=== PATIENT | male | born 1945 | race Caucasian/White ===

== ENCOUNTER → 2020-02-07 16:30 | Outpatient (BNVA) | payer MEDICARE, SELFPAY | PROVIDERS: PCP Nurse Practitioner Family; Visit Provider Family Medicine | DX: Z01.818 Encounter for other preprocedural examination (principal); G56.01 Carpal tunnel syndrome, right upper limb; F17.211 Nicotine dependence, cigarettes, in remission; Z71.89 Other specified counseling | CPT/HCPCS: 80048; 84153; 85025 ==

== ENCOUNTER → 2020-04-04 12:42 | Outpatient (BNVA) | payer MEDICARE, SELFPAY | PROVIDERS: PCP Nurse Practitioner Family; Visit Provider Nurse Practitioner Family | DX: R33.9 Retention of urine, unspecified (principal); N30.90 Cystitis, unspecified without hematuria | CPT/HCPCS: 81003; 87086 ==

== ENCOUNTER → 2020-05-25 13:12 | Outpatient (BNVA) | payer MEDICARE, SELFPAY | PROVIDERS: PCP Nurse Practitioner Family; Visit Provider Nurse Practitioner Family | DX: R33.9 Retention of urine, unspecified (principal); N30.90 Cystitis, unspecified without hematuria; N40.1 Benign prostatic hyperplasia with lower urinary tract symptoms | CPT/HCPCS: 81003 ==

== ENCOUNTER → 2021-01-10 14:55 | Outpatient (BNVA) | payer MEDICARE, SELFPAY | PROVIDERS: PCP Nurse Practitioner Family; Visit Provider Urology | DX: N40.1 Benign prostatic hyperplasia with lower urinary tract symptoms (principal) | CPT/HCPCS: 81003; 84153 ==

== ENCOUNTER → 2021-04-25 17:45 | Outpatient (BNVA) | payer MEDICARE, SELFPAY | PROVIDERS: PCP Nurse Practitioner Family; Visit Provider Nurse Practitioner Family | DX: Z00.00 Encounter for general adult medical examination without abnormal findings (principal); R07.9 Chest pain, unspecified; G47.33 Obstructive sleep apnea (adult) (pediatric); N40.1 Benign prostatic hyperplasia with lower urinary tract symptoms; R03.0 Elevated blood-pressure reading, without diagnosis of hypertension; Z99.89 Dependence on other enabling machines and devices | CPT/HCPCS: 80053; 80061; 83735; 84443; 85025 ==

== ENCOUNTER → 2021-08-16 17:55 | Outpatient (BNVA) | payer MEDICARE, SELFPAY | PROVIDERS: PCP Nurse Practitioner Family; Visit Provider Nurse Practitioner Family | DX: Z20.822 Contact with and (suspected) exposure to COVID-19 (principal); J44.9 Chronic obstructive pulmonary disease, unspecified; R05.9 Cough, unspecified | CPT/HCPCS: 87635 ==

== ENCOUNTER → 2021-12-19 09:31 | Outpatient (BNVA) | payer MEDICARE, SELFPAY | PROVIDERS: PCP Family Medicine; Visit Provider Nurse Practitioner Family | DX: N39.0 Urinary tract infection, site not specified (principal) | CPT/HCPCS: 87077; 87086; 87184 ==

== ENCOUNTER → 2022-01-09 11:45 | Outpatient (BNVA) | payer MEDICARE, SELFPAY | PROVIDERS: PCP Family Medicine; Visit Provider Nurse Practitioner Family | DX: E78.5 Hyperlipidemia, unspecified (principal); N30.90 Cystitis, unspecified without hematuria; J44.9 Chronic obstructive pulmonary disease, unspecified; R07.9 Chest pain, unspecified; E74.818 Other disorders of glucose transport | CPT/HCPCS: 80053; 80061; 83036 ==

== ENCOUNTER → 2022-01-21 12:08 | Outpatient (BNVA) | payer MEDICARE, SELFPAY | PROVIDERS: PCP Family Medicine; Visit Provider Nurse Practitioner Family | DX: N30.90 Cystitis, unspecified without hematuria (principal) | CPT/HCPCS: 87086 ==

== ENCOUNTER → 2022-01-24 10:09 | Outpatient (BNVA) | payer MEDICARE, SELFPAY | PROVIDERS: PCP Family Medicine; Visit Provider Urology | DX: N40.1 Benign prostatic hyperplasia with lower urinary tract symptoms (principal); R31.0 Gross hematuria; N39.0 Urinary tract infection, site not specified | CPT/HCPCS: 51741; 51798; 52000; 99214 ==

== ENCOUNTER → 2022-01-30 14:13 | Outpatient (BNVA) | payer MEDICARE, SELFPAY | PROVIDERS: PCP Family Medicine; Visit Provider Urology | DX: N40.1 Benign prostatic hyperplasia with lower urinary tract symptoms (principal); R33.9 Retention of urine, unspecified; N39.0 Urinary tract infection, site not specified | CPT/HCPCS: 51705; 81003; 99213 ==

== ENCOUNTER → 2022-02-13 18:03 | Outpatient (BNVA) | payer MEDICARE, SELFPAY | PROVIDERS: PCP Family Medicine; Visit Provider Urology | DX: N39.0 Urinary tract infection, site not specified (principal) | CPT/HCPCS: 87077; 87086; 87184 ==

== ENCOUNTER → 2022-03-15 10:10 | Outpatient (BNVA) | payer MEDICARE, SELFPAY | PROVIDERS: PCP Family Medicine; Visit Provider Urology | DX: N40.1 Benign prostatic hyperplasia with lower urinary tract symptoms (principal); N39.0 Urinary tract infection, site not specified | CPT/HCPCS: 51741; 51798; 81003; 87077; 87086; 87186; 99214 ==

== ENCOUNTER → 2022-05-15 10:26 | Outpatient (BNVA) | payer MEDICARE, SELFPAY | PROVIDERS: PCP Family Medicine; Visit Provider Urology | DX: Z12.5 Encounter for screening for malignant neoplasm of prostate (principal) | CPT/HCPCS: G0103 ==

== ENCOUNTER → 2022-05-24 11:09 | Outpatient (BNVA) | payer MEDICARE, SELFPAY | PROVIDERS: PCP Family Medicine; Visit Provider Urology | DX: N39.0 Urinary tract infection, site not specified (principal); N40.1 Benign prostatic hyperplasia with lower urinary tract symptoms | CPT/HCPCS: 51741; 51798; 81003; 99214 ==

== ENCOUNTER 2022-09-23 15:26 | Outpatient (CLI) | payer MEDICARE, SELFPAY ==
--- NOTE | 2022-09-23 15:36 | MR_ITS ---
WS: [id number] MRI LUMBAR SPINE NONCONTRAST TECHNIQUE: Sagittal T1, T2 and STIR imaging. Axial T1 and T2 imaging. CLINICAL INFORMATION: SPINAL STENOSIS, LUMBAR REGION WITH NEUROGENIC CLAUDIFICATIO COMPARISON: None. FINDINGS: Mild lumbar curve. Disc bulging worse at L3-L4 and L4-L5. L1-L2: Normal. L2-L3: Mild annular bulging. Mild central canal stenosis. Slight narrowing subarticular recess bilate rally. Mild facet arthropathy. Foramen are patent. L3-L4: Mild annular bulging in combination with facet arthropathy ligamentum flavum hypertrophy resul ts in severe central canal stenosis. Impingement traversing L4 nerve roots bilaterally. Advanced face t arthropathy. Mild bilateral foraminal narrowing. L4-L5: Mild disc bulging in combination with facet arthropathy ligamentum flavum hypertrophy results in severe central canal stenosis. Impingement traversing L5 nerve roots bilaterally. Moderate to ray re RIGHT foraminal narrowing. LEFT foramen is patent. L5-S1: Mild disc bulging with osteophytic ridging. Slight effacement of ventral thecal sac. Foramen a re patent. Mild facet arthropathy. RIGHT renal cyst measuring 2.5 cm. Mild central canal stenosis in the cervical spine locksmith apprentice imaging at C5-C7. MR/MR lumbar spine wo con* [id number] IMPRESSION: 1. Severe central canal stenosis L3-L4 and L4-L5 due to disc bulging with face t arthropathy and ligamentum flavum hypertrophy. Impingement on the subarticula r recess at these levels. 2. Moderate facet arthropathy L3-L4 and L4-L5. 3. Moderate to severe RIGHT L4-L5 foraminal narrowing with impingement on the exiting RIGHT L4 nerve root. 4. Mild central canal stenosis L2-L3 due to disc bulging with facet arthropath y ligamentum flavum hypertrophy. 5. Mild RIGHT L3-L4 foraminal narrowing.
== END 2022-09-23 15:27 | disposition home or self-care (01) ==
LOC: RAD 15:30
PROVIDERS: PCP Family Medicine; Visit Provider Orthopaedic Surgery
DX: M48.062 Spinal stenosis, lumbar region with neurogenic claudication (principal); M12.88 Other specific arthropathies, not elsewhere classified, other specified site
CPT/HCPCS: 72148

== ENCOUNTER 2023-02-25 06:00 | Outpatient (RCR) | payer MEDICARE, SELFPAY | END 2023-02-27 23:59 | disposition home or self-care (01) | LOC: TPT 06:00 | PROVIDERS: Visit Provider Surgery | DX: M48.061 Spinal stenosis, lumbar region without neurogenic claudication (principal) | CPT/HCPCS: 97162 ==

== ENCOUNTER 2023-02-28 06:00 | Outpatient (RCR) | payer MEDICARE, SELFPAY | END 2023-03-30 23:59 | disposition home or self-care (01) | LOC: TPT 06:00 | PROVIDERS: Visit Provider Surgery | DX: M48.061 Spinal stenosis, lumbar region without neurogenic claudication (principal) | CPT/HCPCS: 97110 ==

== ENCOUNTER → 2023-09-02 11:46 | Outpatient (BNVA) | payer MEDICARE, SELFPAY | PROVIDERS: Visit Provider Urology | DX: Z12.5 Encounter for screening for malignant neoplasm of prostate (principal); R33.9 Retention of urine, unspecified; N40.1 Benign prostatic hyperplasia with lower urinary tract symptoms; Z00.00 Encounter for general adult medical examination without abnormal findings; J44.9 Chronic obstructive pulmonary disease, unspecified; E78.5 Hyperlipidemia, unspecified; R07.9 Chest pain, unspecified | CPT/HCPCS: 80053; 80061; 83036; 84443; 85025; G0103 ==

== ENCOUNTER 2024-01-16 14:17 | Outpatient (CLI) | payer MEDICARE, SELFPAY ==
--- NOTE | 2024-01-16 14:20 | XR_ITS ---
WS: [id number] Right knee, 3 views, 01/16/2024 Clinical Data: pushed and fell on knee Comparison: None. Findings: No fractures or dislocations are seen. There is medial joint compartment narrowing with spurring of t he medial tibial plateau and medial femoral condyle. There is calcification of the chondral cartilage in the lateral joint space. There are small spurs of the posterior patella. The soft tissues are unr emarkable. XR/XR knee RT 3V* [id number] Impression: 1. Negative for right knee fracture. Knee. 2. Medial joint compartment narrowing with chondrocalcinosis of the right later al joint space. 3. Minimal spurring of the posterior right patella. Kellgren-Chirag Classification: grade 3 (moderate): moderate multiple osteoph ytes, definite narrowing of joint space and some sclerosis and possible deformi ty of bone ends
--- NOTE | 2024-01-16 14:20 | XR_ITS ---
WS: [id number] Right hip, AP and frog-leg views, 01/16/2024 Clinical Data: pushed and landed on hip Comparison: None. Findings: No fractures or dislocations are seen. The right hip arthroplasty is in good position. No periprosthe tic fractures or loosening is seen. There are calcifications over the greater trochanter which are ch ronic. The soft tissues are not remarkable. The adjacent pelvis is normal. XR/XR hip RT 2-3V wo/w pel* [id number] Impression: Stable right hip arthroplasty.
== END 2024-01-16 14:18 | disposition home or self-care (01) ==
LOC: RAD 14:20
PROVIDERS: PCP Nurse Practitioner Family; Visit Provider Nurse Practitioner
DX: M17.11 Unilateral primary osteoarthritis, right knee (principal); M11.261 Other chondrocalcinosis, right knee; M25.751 Osteophyte, right hip; Z96.641 Presence of right artificial hip joint; S79.911A Unspecified injury of right hip, initial encounter; X58.XXXA Exposure to other specified factors, initial encounter
CPT/HCPCS: 73502; 73562

== ENCOUNTER 2024-03-11 21:51 | Emergency (ER) | payer MEDICARE, SELFPAY ==
[2024-03-11 22:08] VITALS: BP 142/80; PULSE 109; RESP 20; TEMP 36.3; O2SAT 95
--- NOTE | 2024-03-11 23:20 | W.ED.MALEGU ---
HPI - Male Genitourinary General: Chief complaint: Urogenital-Male Stated complaint: Bag Empty Time Seen by Provider: 03/11/24 23:12 History of Present Illness: Patient comes to the ER with complaints of Sandra catheter not working. Patient had a procedure by her hendrix on Friday and a Sandra catheter placed. He said he was working good up until today at about 6 PM and then stopped working he then had a feeling he needed to urinate with suprapubic cramps and noticed he was pushing urine out around catheter. So patient came to the ER for further evaluation. Patient post have a catheter out tomorrow. Related Data Previous Rx's Medication Instructions Recorded Cpap machine and supplies #1 ea 10/29/21 nitroglycerin 0.4 mg sublingual 0.4 mg sublingual Q5M PRN chest 03/15/22 tablet pain #60 tabs cpap supplies mask and tubing #1 ea 01/23/23 finasteride 5 mg tablet 5 mg PO QDAY #90 tabs 09/17/23 tamsulosin 0.4 mg capsule 0.8 mg (2 x 0.4 mg) PO DAILY 90 09/17/23 days #180 caps Allergies Allergy/AdvReac Type Severity Reaction Status Date / Time Penicillins Allergy Unknown Verified 01/16/24 13:51 Review of Systems General: Reports: 10 or more systems reviewed and unremarkable except in HPI and below PFSH ED PFSH: Medical History Glycosuria Asthma Dyslipidemia COPD (chronic obstructive pulmonary disease) DJD (degenerative joint disease) Prostate nodule AUBREY on CPAP BPH loc w urin obs/LUTS Hx of small bowel obstruction Urinary retention Cystitis Surgical History 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 (~2013) Hx of arthroscopy of shoulder Hx of arthroscopy of knee Hx of colonoscopy (~2012) Family History Father , AT AGE 61 CAD (coronary artery disease) Family/Other Cancer Mother , AT AGE 83 Parkinson disease Social History Smoking and tobacco/nicotine status: unknown if used tobacco/nicotine Quit status (tobacco/nicotine): has quit using Year quit tobacco: 1968 Second hand smoke exposure: No Alcohol intake: current Alcohol intake frequency: holidays/special occasions only Substance/Drug Use: never Adopted: No Lives independently: Yes Household members: spouse Marital status: Current occupational status: employed 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[employer]; 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 Current gender identity: Male Physical Exam Neck/C-Spine: COMMON NORMALS: no JVD Chest: COMMONS NORMALS: normal inspection of the chest and normal palpation of entire chest wall Resp: COMMON NORMALS: normal respiratory effort, No retractions, No use of accessory muscles and clear to auscultation bilaterally AUSCULTATION: clear to auscultation bilaterally Cardio: COMMON NORMALS: no JVD, regular rate, regular rhythm, S1 normal heart sound present, S2 normal heart sound present, No gallops present (Cardio), No clicks present (Cardio) and No murmurs present (Cardio) RATE: regular rate RHYTHM: regular rhythm HEART SOUNDS: S1 normal heart sound present and S2 normal heart sound present GI: COMMON NORMALS: Normal to inspection, nondistended, normoactive bowel sounds present, Soft to palpation, non-tender, No hepatosplenomegaly present and no masses PALPATION: Yes Soft to palpation and Yes No hepatosplenomegaly present Course Vital Signs: Vital signs: Vital Signs Temperature 97.3 F L 03/11/24 22:08 Pulse Rate 109 H 03/11/24 22:08 Respiratory Rate 20 H 03/11/24 22:08 Blood Pressure 142/80 03/11/24 22:08 Pulse Oximetry 95 03/11/24 22:08 Oxygen Delivery Me thod Room Air 03/11/24 22:08 MDM - Male Medical Decision Making Sandra catheter removed by nursing with a clot on the end of it. Patient immediately had the ability to express urine and feels like he emptied himself. Patient will have a bladder scan. If bladder scan is near empty patient be discharged home with catheter. Patient should keep his appoint with Dr. Hendrix tomorrow. Medical Records I reviewed the patient's medical records. Lab Data I reviewed the patient's lab results. All radiology interpretation(s) finalized by discharge Discharge Plan Discharge Patient Disposition: Home Clinical Impression: Malfunction of Sandra catheter Qualifiers: Encounter type: initial encounter Qualified Code(s): T83.011A - Breakdown (mechanical) of indwelling urethral catheter, initial encounter Condition: Stable Prescriptions: No Action (DME) Cpap machine and supplies See Rx Instructions .Route .MEDSUPPLY Qty: 1 0RF Rx Instructions: As directed tamsulosin 0.4 mg capsule 0.8 mg PO DAILY 90 Days Qty: 180 1RF finasteride 5 mg tablet 5 mg PO QDAY Qty: 90 1RF nitroglycerin 0.4 mg tablet, sublingual 0.4 mg sublingual Q5M PRN (Reason: chest pain) Qty: 60 3RF Rx Instructions: do not exceed 3 doses per episode (DME) cpap supplies mask and tubing See Rx Instructions .Route .MEDSUPPLY Qty: 1 0RF Rx Instructions: As directed Discharge Orders: Discharge ED (Routine); Ordered 03/11/24 Ordered By: Carlos Knight Activity Restrictions/Additional Instructions: Your Sandra catheter was removed, you are able to produce urine, bladder scan showed unremarkable urine in your bladder after you urinated. We will leave the Sandra catheter out. Please keep your appointment with Dr. Hendrix tomorrow for further evaluation and treatment. Coding Level of Care Code ED Slat Twister for Hesham Cardenas
== END 2024-03-11 23:47 | disposition home or self-care (01) ==
PROVIDERS: Emergency Provider Emergency Medicine
DX: T83.011A Breakdown (mechanical) of indwelling urethral catheter, initial encounter (principal); X58.XXXA Exposure to other specified factors, initial encounter; Z87.891 Personal history of nicotine dependence; J44.9 Chronic obstructive pulmonary disease, unspecified; E78.5 Hyperlipidemia, unspecified
CPT/HCPCS: 51798; 99282

== ENCOUNTER 2024-04-01 15:51 | Outpatient (CLI) | payer MEDICARE, SELFPAY ==
--- NOTE | 2024-04-01 15:59 | MR_ITS ---
WS: [id number] MRI LUMBAR SPINE NONCONTRAST HISTORY: LUMBAR RADICULOPATHY COMPARISON: 09/23/2022 TECHNIQUE: Sagittal and axial multisequence imaging is submitted. Cervical spondylosis. Mild narrowing of the central cervical canal at C5-6 and C6-7. Mild curvature lumbar spine. Chronic fatty replacement L4-L5 endplates. Moderate disc base narrowing at L4-5 and L5-S1. No acute fracture. Conus terminates normally at L1-2 disc level. L1-L2: Mild annular disc bulging encroaching upon the ventral thecal sac. Shallow RIGHT paracentral d isc protrusion. Very mild encroachment upon the subarticular recesses. L2-L3: Diffuse annular disc bulging with moderate ligamentum flavum and facet arthritis. Mild progres torin of ligamentum flavum disease. Mild central and bilateral subarticular recess stenosis. No forami nal stenosis. L3-L4: Diffuse annular disc bulging with severe ligamentum flavum and facet arthritis. Shallow LEFT f oraminal disc protrusion. Severe central and bilateral subarticular recess stenosis and mild bilatera l foraminal stenosis. L4-L5: Marked annular disc bulging with osteophytic ridging. Central disc protrusion. Severe ligament um flavum and facet arthritis. Severe central stenosis and subarticular recess stenosis. Moderate to severe bilateral foraminal stenosis. L5-S1: Diffuse annular disc bulge with a central disc protrusion. Osteophytic ridging. There is disc contact on the traversing S1 nerve roots. Mild foraminal narrowing. Paravertebral soft tissues are normal. RIGHT renal cyst 1.9 cm. MR/MR lumbar spine wo con* [id number] IMPRESSION: 1. Minimal progression of stenoses and degenerative disc disease since 09/24/19 23. 2. Severe central and bilateral subarticular recess stenosis at L3-4 and L4-5. 3. Moderate to severe bilateral foraminal stenosis at L4-5 and mild at L3-4 an d L5-S1. 4. L5-S1: Small central disc protrusion. Disc contacts the traversing S1 nerve roots. No progression. 5. L2-3: Mild central with bilateral subarticular recess stenosis.
== END 2024-04-01 15:52 | disposition home or self-care (01) ==
LOC: RAD 15:56
PROVIDERS: Visit Provider Nurse Practitioner Family
DX: M54.16 Radiculopathy, lumbar region (principal); M48.061 Spinal stenosis, lumbar region without neurogenic claudication; M48.07 Spinal stenosis, lumbosacral region; M47.892 Other spondylosis, cervical region; M48.02 Spinal stenosis, cervical region; M43.8X6 Other specified deforming dorsopathies, lumbar region; M25.78 Osteophyte, vertebrae; R93.89 Abnormal findings on diagnostic imaging of other specified body structures
CPT/HCPCS: 72148